=== PATIENT | male | born 1970 | race Caucasian/White ===

== ENCOUNTER 2021-03-11 13:05 | Emergency (ER) | payer OTHER ==
[2021-03-11 13:27] VITALS: BMI 28.5
[2021-03-11] MEDS ORDERED: SODIUM CHLORIDE 0.9% 500 ML INFUS.BAG IV ONE (13:45)
[2021-03-11] MEDS ORDERED: ACETAMINOPHEN 500 MG TABLET (FP) PO ONE (13:45)
[2021-03-11] MEDS ORDERED: ACETAMINOPHEN 325 MG TABLET (FP) ONE (13:59)
[2021-03-11] MEDS ORDERED: CASIRIVIMAB/IMDEVIMAB 10 ML in SODIUM CHLORIDE 100 ML IVPB ONE (14:04)
[2021-03-11 14:19] LABS: BASO % 0.3 % (0-2.0); HEMATOCRIT 43.5 % (35.4-49); HEMOGLOBIN 14.9 GM/dL (11.7-16.9); LYMPH % 24.4 % (8-40); MCH 29.9 pg (25.7-33.7); MCHC 34.2 g/dl (32.0-35.9); MEAN CELL VOLUME 87.5 fl (80-96); MEAN PLT VOLUME 8.8 fl (7.5-11.1); MONO % 10.3 % (3.8-10.2); PLATELET COUNT 122 10^3/uL (134-434); RBC 4.97 M/mm3 (4.00-5.60); RDW 13.4 % (11.9-15.9); WHITE BLOOD COUNT 2.8 K/mm3 (4.0-10.0)
[2021-03-11 14:41] LABS: CALCIUM 8.2 mg/dL (8.5-10.1)
[2021-03-11 14:42] LABS: ALBUMIN 3.6 g/dl (3.4-5.0)
[2021-03-11 14:44] LABS: CREATININE 1.1 mg/dL (0.55-1.3)
[2021-03-11 14:46] LABS: BILIRUBIN,TOTAL 0.4 mg/dL (0.2-1)
[2021-03-11 15:38] VITALS: PULSE 77
[2021-03-11 16:31] VITALS: BP 135/88; TEMP 99.6
== END 2021-03-11 16:37 | disposition home or self-care (01) ==
LOC: JER 13:05
PROC: 3E033GC Introduction of Other Therapeutic Substance into Peripheral Vein, Percutaneous Approach (ICD-10-PCS; principal; 2021-03-11)
DX: U07.1 COVID-19 (principal)
CPT/HCPCS: 36415; 71045-TC-FY; 80053; 85025; 93005; 93010; 99285-25; M0240; Q0240

== ENCOUNTER 2021-03-13 09:57 | Inpatient (IN) | payer SELFPAY ==
[2021-03-13] MEDS ORDERED: DEXAMETHASONE SOD PHOSPHATE 10 MG/1 ML VIAL IVPUSH ONE (10:22)
[2021-03-13] MEDS ORDERED: SODIUM CHLORIDE 0.9% 500 ML INFUS.BAG IV ONE (10:52)
[2021-03-13] MEDS ORDERED: DEXAMETHASONE SOD PHOSPHATE 10 MG/1 ML VIAL ONE (10:55)
[2021-03-13 11:07] LABS: BASO % 0.5 % (0-2.0); HEMATOCRIT 43.1 % (35.4-49); HEMOGLOBIN 14.7 GM/dL (11.7-16.9); LYMPH % 30.6 % (8-40); MCH 29.4 pg (25.7-33.7); MCHC 34.1 g/dl (32.0-35.9); MEAN CELL VOLUME 86.1 fl (80-96); MEAN PLT VOLUME 8.8 fl (7.5-11.1); NEUT % 59.9 % (42.8-82.8); PLATELET COUNT 144 10^3/uL (134-434); RBC 5.01 M/mm3 (4.00-5.60); RDW 13.6 % (11.9-15.9); WHITE BLOOD COUNT 3.6 K/mm3 (4.0-10.0)
[2021-03-13 11:25] LABS: CHLORIDE 103 mmol/L (98-107); SODIUM 136 mmol/L (136-145)
[2021-03-13 11:28] LABS: ALBUMIN 3.4 g/dl (3.4-5.0); ANION GAP 8 MMOL/L (8-16); BLOOD UREA NITROGEN 13.5 mg/dL (7-18); CALCIUM 8.2 mg/dL (8.5-10.1); CO2 24 mmol/L (21-32); GLUCOSE,RANDOM 118 mg/dL (74-106); MAGNESIUM 2.3 mg/dL (1.8-2.4)
[2021-03-13 11:31] LABS: SGOT/AST 36 U/L (15-37); SGPT/ALT 35 U/L (13-61)
[2021-03-13 11:32] LABS: PHOSPHOROUS 3.1 mg/dL (2.5-4.9)
[2021-03-13 11:33] LABS: BILIRUBIN,TOTAL 0.4 mg/dL (0.2-1); TOT PROT 7.6 g/dl (6.4-8.2)
[2021-03-13 11:34] LABS: ALK PHOS 87 U/L (45-117)
[2021-03-13] MEDS ORDERED: ACETAMINOPHEN 325 MG TABLET (FP) PO PRN (13:04)
[2021-03-13] MEDS ORDERED: ALBUTEROL SO4 HFA INHALER IH PRN (13:11)
[2021-03-13 14:06] LABS: LDH 380 U/L (87-246)
[2021-03-13] MEDS ORDERED: REMDESIVIR 200 MG in SODIUM CHLORIDE 250 ML IVPB ONE (15:15)
[2021-03-13 16:04] VITALS: BMI 29.9
[2021-03-13] MEDS: ALBUTEROL SO4 HFA INHALER IH SCH ×2 (16:54→20:19)
[2021-03-13] MEDS: SODIUM CHLORIDE 1,000 ML IV SCH (16:55)
[2021-03-13] MEDS: BUDESONIDE/FORMETEROL FUMARATE 160/4.5 mcg INHALER IH SCH (21:14)
[2021-03-14] MEDS: SODIUM CHLORIDE 1,000 ML IV SCH ×2 (04:03→14:05)
[2021-03-14] MEDS: CHOLECALCIFEROL (VIT D3) 5000 UNITS (125 MCG) CAP PO SCH (09:38)
[2021-03-14] MEDS: ENOXAPARIN NA (PORCINE) 40 MG/0.4 ML DISP.SYRIN SQ SCH (09:38)
[2021-03-14] MEDS: ZINC SULFATE 220 MG CAPSULE (FP) PO SCH (09:39)
[2021-03-14] MEDS: ALBUTEROL SO4 HFA INHALER IH SCH ×4 (09:39→21:16)
[2021-03-14] MEDS: FAMOTIDINE 20 MG TABLET PO SCH (09:39)
[2021-03-14] MEDS: BUDESONIDE/FORMETEROL FUMARATE 160/4.5 mcg INHALER IH SCH ×2 (09:39→21:16)
[2021-03-14] MEDS: ASCORBIC ACID 250 MG TABLET (FP) PO SCH (09:39)
[2021-03-14] MEDS: DEXAMETHASONE SOD PHOSPHATE 10 MG/1 ML VIAL IVPUSH SCH (09:39)
[2021-03-14 09:49] LABS: EPI CELLS 4 /uL (0-25.1); HYALINE CASTS 0 /uL (0-3.1); PH,URINE 6.5 (5.0-8.0); URINE APPEARANCE CLEAR; URINE BACTERIA 6 /uL (0-1359); URINE BILIRUBIN NEGATIVE (NEGATIVE); URINE COLOR YELLOW; URINE GLUCOSE (UA) NEGATIVE (NEGATIVE); URINE KETONE NEGATIVE (NEGATIVE); URINE LEUK ESTERASE NEGATIVE (NEGATIVE); URINE NITRITE NEGATIVE (NEGATIVE); URINE PROTEIN 1+ (NEGATIVE); URINE RBC 10 /uL (0-23.9); URINE WBC 2 /uL (0-25.8)
[2021-03-14 10:40] LABS: HEMATOCRIT 39.2 % (35.4-49); HEMOGLOBIN 13.5 GM/dL (11.7-16.9); MCH 29.9 pg (25.7-33.7); MCHC 34.4 g/dl (32.0-35.9); MEAN CELL VOLUME 86.8 fl (80-96); MEAN PLT VOLUME 9.7 fl (7.5-11.1); PLATELET COUNT 178 10^3/uL (134-434); RBC 4.52 M/mm3 (4.00-5.60); RDW 13.5 % (11.9-15.9); WHITE BLOOD COUNT 3.7 K/mm3 (4.0-10.0)
[2021-03-14 11:02] LABS: CALCIUM 7.8 mg/dL (8.5-10.1)
[2021-03-14 11:03] LABS: BLOOD UREA NITROGEN 15.8 mg/dL (7-18); MAGNESIUM 2.4 mg/dL (1.8-2.4)
[2021-03-14 11:05] LABS: CREATININE 0.8 mg/dL (0.55-1.3); PHOSPHOROUS 3.2 mg/dL (2.5-4.9)
[2021-03-14 11:07] LABS: BILIRUBIN,TOTAL 0.3 mg/dL (0.2-1); TOT PROT 6.6 g/dl (6.4-8.2)
[2021-03-14 11:16] LABS: ERYTHROCYTE SEDIMENTATION RATE 37 mm/hr (0-10)
[2021-03-14 11:21] LABS: ALBUMIN 2.8 g/dl (3.4-5.0)
[2021-03-14] MEDS: REMDESIVIR 100 MG in SODIUM CHLORIDE 250 ML IVPB SCH (14:05)
[2021-03-15] MEDS: ALBUTEROL SO4 HFA INHALER IH SCH ×4 (09:49→20:20)
[2021-03-15] MEDS: DEXAMETHASONE SOD PHOSPHATE 10 MG/1 ML VIAL IVPUSH SCH (09:50)
[2021-03-15] MEDS: ENOXAPARIN NA (PORCINE) 40 MG/0.4 ML DISP.SYRIN SQ SCH (09:51)
[2021-03-15] MEDS: BUDESONIDE/FORMETEROL FUMARATE 160/4.5 mcg INHALER IH SCH ×2 (09:54→21:43)
[2021-03-15] MEDS: FAMOTIDINE 20 MG TABLET PO SCH (09:54)
[2021-03-15] MEDS: ZINC SULFATE 220 MG CAPSULE (FP) PO SCH (09:54)
[2021-03-15] MEDS: ASCORBIC ACID 250 MG TABLET (FP) PO SCH (09:54)
[2021-03-15] MEDS: CHOLECALCIFEROL (VIT D3) 5000 UNITS (125 MCG) CAP PO SCH (09:54)
[2021-03-15] MEDS: REMDESIVIR 100 MG in SODIUM CHLORIDE 250 ML IVPB SCH (15:13)
[2021-03-16] MEDS: ALBUTEROL SO4 HFA INHALER IH SCH ×3 (09:40→17:00)
[2021-03-16] MEDS ORDERED: PT OWN MED DRAWER 7, Y5N ONE (10:08)
[2021-03-16] MEDS: ZINC SULFATE 220 MG CAPSULE (FP) PO SCH (10:21)
[2021-03-16] MEDS: DEXAMETHASONE SOD PHOSPHATE 10 MG/1 ML VIAL IVPUSH SCH (10:21)
[2021-03-16] MEDS: ASCORBIC ACID 250 MG TABLET (FP) PO SCH (10:22)
[2021-03-16] MEDS: BUDESONIDE/FORMETEROL FUMARATE 160/4.5 mcg INHALER IH SCH (10:22)
[2021-03-16] MEDS: CHOLECALCIFEROL (VIT D3) 5000 UNITS (125 MCG) CAP PO SCH (10:22)
[2021-03-16] MEDS: FAMOTIDINE 20 MG TABLET PO SCH (10:22)
[2021-03-16] MEDS: ENOXAPARIN NA (PORCINE) 40 MG/0.4 ML DISP.SYRIN SQ SCH (10:32)
[2021-03-16 13:10] LABS: BASO % 0.3 % (0-2.0); EOS % 0.1 % (0-4.5); HEMATOCRIT 44.1 % (35.4-49); HEMOGLOBIN 15.3 GM/dL (11.7-16.9); LYMPH % 12.5 % (8-40); MCHC 34.6 g/dl (32.0-35.9); MEAN CELL VOLUME 86.8 fl (80-96); MEAN PLT VOLUME 8.9 fl (7.5-11.1); NEUT % 78.1 % (42.8-82.8); PLATELET COUNT 294 10^3/uL (134-434); RBC 5.08 M/mm3 (4.00-5.60); RDW 13.5 % (11.9-15.9); WHITE BLOOD COUNT 8.9 K/mm3 (4.0-10.0)
[2021-03-16 13:36] LABS: CALCIUM 8.8 mg/dL (8.5-10.1)
[2021-03-16 13:37] LABS: BLOOD UREA NITROGEN 20.6 mg/dL (7-18); MAGNESIUM 2.2 mg/dL (1.8-2.4)
[2021-03-16 13:41] LABS: BILIRUBIN,TOTAL 0.6 mg/dL (0.2-1)
[2021-03-16 13:42] LABS: TOT PROT 8.1 g/dl (6.4-8.2)
[2021-03-16 13:46] LABS: ALBUMIN 3.7 g/dl (3.4-5.0)
[2021-03-16] MEDS: REMDESIVIR 100 MG in SODIUM CHLORIDE 250 ML IVPB SCH (15:09)
[2021-03-16 15:13] VITALS: BP 125/72; PULSE 72; TEMP 98.5
== END 2021-03-16 18:20 | disposition home or self-care (01) | DRG 137 ==
LOC: JER 09:57 → JERBED 12:49 → J5S 15:31
PROVIDERS: ADMIT Internal Medicine; ATTEND Nurse Practitioner Family
PROC: XW033E5 Introduction of Remdesivir Anti-infective into Peripheral Vein, Percutaneous Approach, New Technology Group 5 (ICD-10-PCS; principal; 2021-03-13)
DX: U07.1 COVID-19 (principal); J96.01 Acute respiratory failure with hypoxia; D72.819 Decreased white blood cell count, unspecified; M10.9 Gout, unspecified; I10 Essential (primary) hypertension
CPT/HCPCS: 36415; 71045-TC-FY; 80053; 81003; 82550; 82728; 83615; 83735; 84100; 84484; 85025; 85027; 85379; 85651; 86140; 87040; 87086; 87804; 93005; 93010; 94761; 99285-25; C9399; C9803; J1100; U0003; U0005